=== PATIENT | female | born 1960 | race Caucasian/White ===

== ENCOUNTER 2017-10-30 21:13 | Inpatient (IN) | payer OTHER ==
[~2017-10-30] VITALS: Ht 154.9 cm; Wt 45.0 kg
--- NOTE | ~2017-10-30 | CON ---
[place], [place] REPORT OF CONSULTATION NAME: CASTILLO PEREZ UNIT #: [id number] ROOM: 406 DOCTOR: GENEVIEVE PECK MD,ROLAND BIRTHDATE: [birth year] DOS: 10/31/2017 PULMONARY CONSULTATION EVALUATION AND MANAGEMENT CONSULTATION REQUESTING PHYSICIAN: Dr. Bean. REASON FOR CONSULTATION: Assess the patient's current acute exacerbation of chronic obstructive pulmonary disease. HISTORY OF PRESENT ILLNESS: A 57-year-old white female who has been known to me with history of advanced COPD with centrilobular emphysema, chronic hypoxic respiratory failure, noncompliant treatment, chronic nicotine abuse, presented to the hospital on 10/30/2017. The patient has been noted progressive increase of symptoms of shortness of breath for the past couple of weeks. The symptoms are also associated with cough, which are noted excessive chest congestion, inability to expectorate sputum, most of the time, sometimes she has been noted with green sputum expectoration. She denies symptoms of chest pain. Denies symptoms of hemoptysis. She does complain of wheezing. REVIEW OF SYSTEMS: CONSTITUTIONAL: Fatigue and tiredness noted without symptoms of fever or chills. EYES: Denies burning, redness, tenderness. EARS, NOSE, THROAT: No sore throat, hoarseness, otalgia, postnasal drainage or epistaxis. CARDIOVASCULAR: Denies anginal pain, edema, pain, lower extremities. GASTROINTESTINAL: Dysphagia, nausea, vomiting, diarrhea, abdominal pain, hematemesis, melena, or hematochezia. SKIN: Denies lesions or rashes. CENTRAL NERVOUS SYSTEM: No dizziness, headache, diplopia, syncopal episodes. Remaining systems were reviewed. They were noted all negative. PAST MEDICAL HISTORY: 1. Review the medical record. The patient has been hospitalized from the date of 01/04/2017 and discharged home on 01/22/2017. The patient required intubation and mechanical ventilation at that time for the management of severe progressive acute hypercapnic and hypoxic respiratory failure. 2. History of advanced centrilobular emphysema/COPD. 3. History of chronic hypercapnic respiratory failure. 4. Chronic hypoxic respiratory failure, uncomplicated. 5. Severe persistent bronchial asthma. 6. History of chronic narcotic pain medication dependence. 7. Anxiety disorder. Noncompliant with the chronic nicotine dependence. PAST SURGICAL HISTORY: 1. Appendectomy. 2. Laparoscopic cholecystectomy. 3. Endotracheal intubation and mechanical ventilation. 4. Bronchoscopy. [place], [place] REPORT OF CONSULTATION NAME: CASTILLO PEREZ UNIT #: [id number] ROOM: [facility] DOCTOR: ROLAND BRIONES MD BIRTHDATE: [birth year] SOCIAL HISTORY: The patient is , has 4 children. Smoking noted from age of [age] years old, 1.5 pack of cigarettes per day, currently smoking as 1 pack of cigarettes per day. Denies history of alcohol use or any illicit drug use. There was no history, occupational related pulmonary exposure. FAMILY HISTORY: Father at age 42-year-old, complication of aneurysm of the brain. Mother at the age of 5656 years old, complication related to COPD. MEDICATIONS: Current administered medication noted use of IV Solu-Medrol 40 mg q.8h., sertraline, DuoNeb q.4h. fentanyl patches, Klonopin, Rocephin, and Xanax. DRUG ALLERGIES: Noted as no known drug allergies. PHYSICAL EXAMINATION: GENERAL: This 57-year-old female currently noted without any acute distress, sitting on a bed. Height of 5 feet 1 inch, weight of 99 pounds, BMI 18.7. VITAL SIGNS: Normal temperature, respiratory rate 18-22, heart rate of 80-67, blood pressure 142/70-154/84. The pulse oxygen saturation on 3 liters was 84% with 3 liters of cannula to 95% saturation. HEENT: Examination shows head was atraumatic. Eyes nonicterus. NECK: Supple. CARDIOVASCULAR: S1, S2 audible. LUNGS: Diffuse reduced breath sounds bilaterally with expiratory wheezing without any crackles. ABDOMEN: Flat, soft, nontender. EXTREMITIES: Without any edema, clubbing, cyanosis. CENTRAL NERVOUS SYSTEM: Cranial nerves 2-12 intact. No focal deficit. MUSCULOSKELETAL: No deformities visible. SKIN: No lesions or rashes. LABORATORY DATA: Lactic acid on admission 2.2, this morning 0.8. CBC of 10/30/2017. WBC count was normal. Hemoglobin, hematocrit normal, platelet count was normal. The PT/INR noted as normal yesterday on admission as well. CMP on admission yesterday, carbon dioxide 35, chloride of 96. Otherwise, the BMP was normal. The chest x-ray, 2-view, which was done on 10/30/2017 shows severe changes of COPD, hyperinflation without any acute pulmonary infiltration. IMPRESSION: 1. The patient has been currently admitted to the hospital, history of chronic hypoxic respiratory failure, hypercapnic and presented to the hospital noted with acute severe exacerbation of chronic obstructive pulmonary disease, acute tracheobronchitis with progressive respiratory symptom past couple of days. There was no evidence of acute pneumonia as well. 2. Noncompliance chronic nicotine dependence and acute general anxiety disorder, this as noted earlier. PLAN OF TREATMENT: Continue current dose of corticosteroids and bronchodilators. Continue current antibiotic for this patient's management as well with IV Rocephin. She was started on Dulera 200/5 due inhalation b.i.d., [place], [place] REPORT OF CONSULTATION NAME: CASTILLO PEREZ UNIT #: [id number] ROOM: [facility] DOCTOR: GENEVIEVE PECK MD,ROLAND BIRTHDATE: [birth year] Also, start mucoid replacement patch to overcome nicotine withdrawal. Collect the sputum for Gram stain and culture. Monitor respiratory symptoms closely. Further addition treatment changes will be ordered based on progression of the illness. Thanks for allowing me to participate in the care of this patient. ROLAND VALLEJO MD CM:CONSTR:REPORT OF CONSULTATION 1107 10/31/17 1538 interface
--- NOTE | ~2017-10-30 | PR ---
[place], [place] PROGRESS NOTE NAME: CASTILLO PEREZ UNIT #: [id number] ROOM: 406 DOCTOR: GENEVIEVE PECK MD,ROLAND BIRTHDATE: [birth year] DOS: 11/01/2017 SUBJECTIVE: She was still noted with coughing. The patient with partial sputum expectoration, wheezing, and shortness of breath still persists. Denies symptoms of chest pain or hemoptysis. She has been started on nicotine replacement patches. OBJECTIVE: VITAL SIGNS: For the patient which are recorded this morning. The patient was examined and normal temperature, respiratory rate 18, heart rate of 97, blood pressure 111/80. Pulse ox saturation was recorded at 100% on 3 liters cannula. HEENT: Examination shows no acute change. NECK: Supple. CARDIOVASCULAR: S1, S2 audible. LUNGS: Diffuse expiratory wheezing were noted in the lungs bilaterally. ABDOMEN: Soft, nontender. EXTREMITIES: Without any acute edema. IMPRESSION: 1. Acute exacerbation of chronic obstructive pulmonary disease for the patient. 2. History of chronic hypoxic and hypercapnic respiratory failure. 3. Acute tracheobronchitis. 4. Nicotine dependence. PLAN OF TREATMENT: Continuation of the current plan of management with corticosteroids, bronchodilators, and other treatment with gradual reduction in the medication of the patient based on improvement in the respiratory symptom. Usual care. Supportive care and other treatments. ROLAND VALLEJO MD CM:PNTRANS [id number] ROLAND PECK MD 11/06/17 0704 interface
--- NOTE | ~2017-10-30 | DS ---
[place], [place] DISCHARGE SUMMARY NAME: CASTILLO PEREZ UNIT #: [id number] ROOM: 406 DOCTOR: KELIN HOGAN MD BIRTHDATE: [birth year] DOS: 11/02/2017 DISCHARGE DIAGNOSES: 1. Acute exacerbation of severe underlying chronic obstructive pulmonary disease and acute over chronic respiratory failure, improved with treatment. 2. Continued nicotine smoke dependence. 3. Chronic hypoxemic and hypercapnic respiratory failure. 4. Nicotine smoke dependence. 5. Severe generalized anxiety disorder. 6. Severe protein calorie malnutrition. 7. Benign essential hypertension. 8. Chronic opioid dependence. 9. History of hepatitis C by infection. 10. Laparoscopic cholecystectomy and appendectomy. HOSPITAL COURSE: The patient was admitted by Dr. Espinosa with increased shortness of breath and had already failed outpatient treatment with 2 different antibiotics for her cough. The patient was admitted and started on corticosteroids, oxygen, bronchodilators and her breathing has improved to a point that she would like to go home today. The patient's pulse ox is 98% with oxygen 3 liters per minute as checked today. End-stage COPD with poor long-term prognosis. The patient was referred to lung transplant, but she cannot stop smoking and still has been smoking cigarettes off and on, so she is not a candidate for lung transplant so far. Generalized anxiety disorder, followed and treated. Severe protein calorie malnutrition. The patient worked with dietary. Benign essential hypertension, with controlled blood pressures with treatment. Chronic back pains and opioid medication dependence. The patient remains on fentanyl patch. LABORATORY DATA: Sputum cultures were normal. Blood cultures were negative. Chest x-ray without any acute abnormality. Normal CBC. DISCHARGE MANAGEMENT: Nicotine patch 21 mg daily, Zoloft 200 mg daily, Symbicort twice a day, Medrol Dosepak, DuoNeb every 4 hours, fentanyl patch 100 mcg every 3 days, clonazepam 0.5 mg b.i.d. p.r.n. for anxiety, Xanax p.r.n. FOLLOWUP: At the office on Saturday. [place], [place] DISCHARGE SUMMARY NAME: CASTILLO PEREZ UNIT #: [id number] ROOM: 406 DOCTOR: KELIN HOGAN MD BIRTHDATE: [birth year] KELIN HOGAN MD CM:REAGAN [id number] KELIN HOGAN MD 11/02/17 2030 interface
--- NOTE | ~2017-10-30 | PR ---
[place], [place] PROGRESS NOTE NAME: CASTILLO PEREZ UNIT #: [id number] ROOM: 406 DOCTOR: KELIN HOGAN MD BIRTHDATE: [birth year] DOS: 11/01/2017 SUBJECTIVE: The patient continues to be short of breath. PHYSICAL EXAMINATION: VITAL SIGNS: Blood pressure 121/57, heart rate 70 beats per minute, breathing 18 times per minute, temperature 98 degrees Fahrenheit. GENERAL APPEARANCE: The patient is alert and oriented x 3, in no visible distress. HEENT AND NECK: Exam within normal limits. CARDIOVASCULAR SYSTEM: Heart rate is regular in rate and rhythm. S1 and S2 normally audible. LUNGS: Decreased breath sounds all over and the patient is wearing oxygen.. ABDOMEN: Soft, nontender. No obvious organomegaly. Bowel sounds are present. EXTREMITIES: Without significant cyanosis or edema. IMPRESSION: Acute exacerbation of severe underlying chronic obstructive pulmonary disease with acute over chronic respiratory failure, being treated with bronchodilators, oxygen, corticosteroids and antibiotics. Dr. Mcadams, the chemical plant manager is also following her. Chronic hypoxemic and hypercapnic respiratory failure. Continued Nicotine smoke dependence. The patient does not qualify for lung transplant. Otherwise, she is a good candidate and has been before for lung transplant. Severe generalized anxiety disorder, at least partly related to her chronic respiratory failure, being managed. The patient takes Xanax on as need basis. Chronic back pains. The patient remains on fentanyl patch. KELIN HOGAN MD CM:PNTRANS [id number] KELIN HOGAN MD 11/01/17 1355 interface
--- NOTE | ~2017-10-30 | WRIGHTHP ---
[place], [place] PATIENT HISTORY AND PHYSICAL EXAM NAME: CASTILLO PEREZ [facility] #: [id number] UNIT #: [id number] ROOM: 406 DOCTOR: LINDA MISHRA MD BIRTHDATE: [birth year] DOS: 10/30/2017 HISTORY OF PRESENT ILLNESS: The patient is 57 years old. The patient is very well known to us, comes in with complaints of difficulty breathing. The patient states that she had seen Dr. Bean and had 2 different antibiotics prescribed for her cough. Her cough would get slightly better while she was on the antibiotic, the moment she stop the medicine, her symptoms would come back and had cough and mucus production would become green again. She denies having any chest pains or palpitations, does not have any fever or chills, does not have any abdominal pain, nausea, any emesis. The patient was last admitted to the hospital in 01/2017, but unfortunately continues to smoke 1 pack of cigarettes daily. PAST MEDICAL HISTORY: Significant for: 1. COPD with chronic respiratory failure. 2. Continued moderate nicotine abuse. 3. Generalized anxiety disorder. 4. Protein-calorie malnutrition, severe. 5. Benign hypertension. 6. Chronic opioid abuse. 7. Benign hepatitis C by history. 8. History of laparoscopic cholecystectomy, appendectomy. MEDICATIONS: Ventolin 2 puffs daily p.r.n., Symbicort 160 two puffs twice daily, Xanax 0.25 q. 6, clonazepam 0.5 b.i.d., iron daily, sertraline 200 daily, fentanyl 100 mcg q. 72. SOCIAL HISTORY: Smoker of about 1 pack of cigarettes a day. Denies using any alcohol now. PHYSICAL EXAMINATION: GENERAL: She is awake and alert and oriented. VITAL SIGNS: Graphic trend shows a pressure of 135/62, pulse of 70, respirations 20, temperature 98.5. LUNGS: Diminished breath sounds. Scattered wheezes and rhonchi heard bilaterally. HEART: Regular. ABDOMEN: Soft. EXTREMITIES: Without any edema. LABORATORY DATA: Chest x-ray as done in the Emergency Room shows no acute process. Lactic acid was 2.2. White blood cell count is 7.2. Comprehensive glucose 132, BUN 16, sodium 139, potassium 3.9, chloride 96, bicarbonate 35, creatinine 0.95. ASSESSMENT AND PLAN: 1. Acute exacerbation of chronic obstructive pulmonary disease, failed outpatient regimen admitted for IV steroids. 2. Acute tracheobronchitis. IV antibiotics have been added. Sputum cultures to be sent. The patient has received 2 different antibiotics as an outpatient [place], [place] PATIENT HISTORY AND PHYSICAL EXAM NAME: CASTILLO PEREZ UNIT #: [id number] ROOM: [facility] DOCTOR: LINDA MISHRA MD BIRTHDATE: [birth year] without any improvement, may require a bronchoscopy, Dr. Mcadams has been consulted. 3. Anxiety disorder. Home medications to be continued. LINDA MISHRA MD CM:HISPHYS:PATIENT HISTORY AND PHYSICAL EXAMINATION 1 7 LINDA MISHRA MD 10/31/17907 interface
[~2017-10-30 21:13] MED LIST: ACETAZOLAMIDE250 MG PO; ADVAIR 250/501 EA INH; ALBUTEROL SULF0.5 M1 NEB; ALPRAZOLAM0.25 M2 PO; AMLODIPINE BESYL5 MG PO; ATOXIMETIN-B1 CAP PO; AUGMENTIN 875-875 MG PO; BACTRIM DS 8001 TA1 PO; CALCIUM + D3 E1 EACH PO; CALCIUM CARB500 MG PO; CEFTIN250 MG PO; CEFUROXIME AXE250 MG PO; CHANTIX0.5 MG PO; CLINDAMYCIN150 MG PO; CLONAZEPAM0.5 M2 PO; CYCLOBENZAPRINE10 MG PO; DALI500T PO; DOXYCYCLINE100 M3 PO; DULCOLAX10 MG R; DURAGESIC; DURAGESIC 100100 MCG TD; DURAGESIC100 MCG/HR TD; DURAGESIC25 MCG/HR TD; DURICEF500 MG PO; FLONASE 0.05% 121 EA NAS; HCTZ-METOPROLOL1 TAB PO; HYDR25T PO; HYDROCHLOROTHIA25 MG PO; HYDROCODONE BIT1 T11 PO; KEFLEX500 MG PO; LEVAQUIN250 MG PO; LEVAQUIN750 MG PO; LIDEX 0.05% CRE15 GM T; LISINOPRIL-HYDR1 TA1 PO; MAALOX UD SUSP.30 ML PO; MEDROL DOSEPAK4 MG PO; METHADONE HCL40 M2 PO; MIRALAX POWDER17 G1 PO; MIRALAX17 GM/DOSE PO; MOTRIN800 MG PO; MUCINEX DM 30/61 TAB PO; MUCINEX600 MG PO; MULTI VITAMINS1 TAB PO; MULTIVITAMIN FO1 CAP PO; Motrin,Rufen800 MG PO; NAPROSYN500 MG PO; NICOTINE PATCH1 EAC1 TD; NIX CREME RINSE60 M1 PO; NORCO 325 MG-51 TAB PO; NORFLEX100 MG PO; NORVASC5 MG PO; PEGASYS180 MCG/ML; PERCOCET 325 MG1 TA7 PO; PHOSLO667 MG PO; PREDNISONE1 MG PO; PREDNISONE10 MG; PREDNISONE10 MG PO; PREDNISONE20 M1 PO; PREDNISONE20 MG PO; PREPLUS CA-FE1 EACH PO; PROAIR HFA0.09 MG/AC INH; PROTONIX40 MG PO; REGLAN10 MG PO; RIBAVIRIN400 MG PO; RIBAVIRIN600 MG PO; RISPERDAL0.5 MG PO; SERTRALINE HYDR50 MG PO; SPIRIVA 5 CAPS18 MCG INH; SPIRIVA18 MCG INH; SYMBICORT1 AE1 INH; TORADOL10 MG PO; TRIMOX500 MG PO; TYLENOL325 M1 PO; ULTRAM50 MG; VENTOLIN 02.5 MG/3 M PO; VENTOLIN H0.09 MG/AC INH; VENTOLIN0.09 MG/AC INH; VIBRA-TAB100 M1 PO; VIBRAMYCIN100 MG PO; VITAMIN B; VITAMIN D33000 UNIT PO; WELLBUTRIN XL300 MG PO; ZOFRAN ODT4 MG SL; ZOLOFT100 MG PO; ZOLOFT20 MG/ML PO; [UNRECOGNIZED DRUG - OTHER] TD
[2017-10-30 21:18] VITALS: BP 124/92
[2017-10-30 22:09] LABS: BASO % 0.1 % (0.0-1.0); EOS % 0.6 % (1.0-4.0); HEMOGLOBIN 12.7 g/dl (12.0-16.0); LYMPH # 0.5 10*3/uL (1.3-4.4); LYMPH % 6.8 % (27.0-41.0); MEAN CELL VOLUME 99.2 fl (81.0-99.0); MEAN CORPUSCULAR HGB 32.3 pg (27.0-31.0); MEAN CORPUSCULAR HGB CONC 32.6 g/dl (33.0-37.0); MEAN PLATELET VOLUME 9.6 fl (9.6-12.3); MONO # 0.4 10*3/uL (0.1-1.0); MONO % 6.1 % (3.0-9.0); NEUT # 6.2 10*3/uL (2.3-7.9); PLATELET COUNT AUTOMATED 178 10*3/uL (130-400); RED BLOOD COUNT 3.93 10*6/uL (4.10-5.10); RED CELL DISTRI WIDTH 13.1 % (0-14.5); WHITE BLOOD COUNT 7.2 10*3/uL (4.8-10.8)
--- NOTE | 2017-10-30 22:13 | NUR ---
LACTIC ACID 2.2 C GARRETT GUERRERO NOTIFIED.
[2017-10-30 22:27] LABS: ALBUMIN 3.4 gm/dl (3.1-4.5); ALKALINE PHOSPHATASE 123 U/L (45-117); BUN 16 mg/dl (7-24); CHLORIDE 96 mmol/L (98-107); CREATININE 0.95 mg/dL (0.55-1.02); LIPASE 77 U/L (73-393); POTASSIUM 3.9 mmol/L (3.5-5.1); SGOT/AST 43 IU/L (3-35); SGPT/ALT 42 U/L (12-78); SODIUM 139 mmol/L (136-145)
[2017-10-30 22:32] LABS: TROPONIN I < 0.015 ng/ml (<0.045)
[2017-10-30 22:37] VITALS: BP 128/84
--- NOTE | 2017-10-30 22:49 | NUR ---
PT PROMPTED FOR URINE AGAIN.PT HAS BEDSIDE TOILET.
[2017-10-30 23:12] VITALS: BP 122/77
--- NOTE | 2017-10-30 23:50 | NUR ---
Time: 2349 A 57 year old FEMALE admitted to under services of LINDA MEDINA MD. Pt. arrived via bed from ER. Chief complaint: SHORTNESS OF BREATH, PRODUCTIVE COUGH. VENICE RUSSO
[2017-10-31] VITALS (7 sets, daily range): BP systolic 125–154; BP diastolic 58–84
[2017-10-31 00:02] LABS: BILIRUBIN NEGATIVE (NEGATIVE); BLOOD NEGATIVE (NEGATIVE); CLARITY CLEAR (CLEAR); COLOR YELLOW (YELLOW); GLUCOSE NEGATIVE (NEGATIVE); KETONE NEGATIVE (NEGATIVE); LEUKO ESTERASE NEGATIVE (NEGATIVE); NITRITE NEGATIVE (NEGATIVE); UROBILINOGEN 0.2 E.U./dl (0.2-1.0)
[2017-10-31 00:19] LABS: EPITHELIAL CELLS 15-20
[2017-10-31 00:20] LABS: WBC 0-2 wbc/hpf (0-5)
--- NOTE | 2017-10-31 01:30 | NUR ---
DR MISHRA WAS CALLED, ANSWERING MACHINE PICKED UP, STATED TO CALL AGAIN WITH BEEPS. WAS UNABLE TO LEAVE MESSAGE.
--- NOTE | 2017-10-31 02:39 | NUR ---
PATIENT HAS BEEN RESTING ALL NIGHT WITH EYES CLOSED. RESPIRATORY NOTIFIED EARLIER FOR LONGER OXYGEN TUBING TO REACH THE BATHROOM. VOICED O COMPLAINTS.
--- NOTE | 2017-10-31 02:58 | NUR ---
24 HR chart check completed.
--- NOTE | 2017-10-31 03:38 | NUR ---
DR MISHRA NOTIFIED OF ADMISSION, NEW ORDER RECEIVED FOR REGULAR DIET, DUONEB Q4 HOURS, SOLUMEDROL 4OMG 3XDAY AND ROCEPHIN 1GM QD.
--- NOTE | 2017-10-31 04:39 | NUR ---
PATIENT LYING IN BED ON HER LEFT SIDE. PATIENT WITH EYES CLOSED, APPEARS TO BE SLEEPING. NO S/S OF DISTRESS, NOTED.
--- NOTE | 2017-10-31 08:00 | NUR ---
Slurry Control Tender in to talk to patient. Patient states lives at HOME with HER DAUGHTER. There are 16 steps in the home. Physician: DR HOGAN Pharmacy: [facility] Home health services: NONE Patient's level of ADLs: INDEPENDENT Patient has working utilities: YES DME: NEB/OCC [facility]E/O2 FROM [facility] Follow-up physician's appointment after d/c: PREFERS TO MAKE HER OWN APPT Does patient want to access PORTAL?: Discharge plan HOME. CHEVY MARQUEZ
--- NOTE | 2017-10-31 09:04 | NUR ---
RESTING QUIETLY IN BED, NO C/O NO DISTRESS NOTED. HOB ELEVATED WITH O2 ON. DR MISHRA VISITED AND DISCUSSED PLAN OF CARE. SEE SHIFT ASSESSMENT.
--- NOTE | 2017-10-31 10:45 | NUR ---
SPUTUM CUP GIVEN TO PT WITH INSTRUCTIONS FOR USE
[2017-10-31] MEDS ORDERED: XANAX0.25 MG PO (16:26)
[2017-10-31] MEDS ORDERED: COMBIVENT RESPIM4 GM INH (16:26)
[2017-10-31] MEDS ORDERED: DALIRESP500 MC1 PO (16:28)
[2017-10-31] MEDS ORDERED: VITAMIN D32000 UNIT PO (16:29)
[2017-10-31] MEDS ORDERED: DUONEB 3 MG/3 ML3 M1 INH (16:30)
[2017-10-31] MEDS ORDERED: Duragesic 75 M75 MCG TD (16:31)
--- NOTE | 2017-10-31 23:00 | NUR ---
TOOK OVER CARE OF PT AT THIS TIME. PT RESTING IN BED, RESPIRATIONS EASY AND UNLABORED. SUPPLEMENTAL OXYGEN IN PLACE PER NC. NO S/S OF PAIN OR DISTRESS. ENCOURAGED PT TO EXPECTORATE INTO SPUTUM CUP IN ORDER TO SEND SPECIMEN TO LAB.
[2017-11-01] VITALS: BP 111/80
--- NOTE | 2017-11-01 00:56 | NUR ---
SPUTUM SPECIMEN SENT TO LAB AT THIS TIME PER PHYSICIAN ORDER.
--- NOTE | 2017-11-01 04:00 | NUR ---
PT NOT AWAKENED PER POLICY, PT RESTING IN BED, NO S/S OF PAIN OR DISTRESS. ALL NEEDS MET, ALL SAFETY MEASURES IN PLACE.
--- NOTE | 2017-11-01 06:51 | NUR ---
AM MEDICATIONS TAKEN WITH EASE. PT DENIES ANY DISCOMFORT AT THIS TIME. SUPPLEMENTAL OXYGEN IN PLACE, RESPIRATIONS EASY AND UNLABORED. NO S/S OF PAIN OR DISTRESS. ENCOURAGED USE OF CALL LIGHT FOR NEEDS/CONCERNS.
[2017-11-01 08:00] VITALS: BP 121/57
[2017-11-01 12:00] VITALS: BP 123/76
[2017-11-01 16:00] VITALS: BP 108/64
[2017-11-01 20:00] VITALS: BP 148/94
[2017-11-02] VITALS: BP 146/96
[2017-11-02 08:00] VITALS: BP 164/88
[2017-11-02 09:05] VITALS: BP 150/76
--- NOTE | 2017-11-02 11:11 | NUR ---
PT RECEIVED NORCO FOR PAIN RATED 6/10 IN HER BACK.
[2017-11-02 12:00] VITALS: BP 139/80
[2017-11-02] MEDS ORDERED: MEDROL DOSEPAK4 MG PO (16:14)
[2017-11-02] MEDS ORDERED: MUCINEX1200 M1 PO (16:30)
--- NOTE | 2017-11-02 16:50 | NUR ---
DISCHARGED TO HOME IN CARE OF FAMILY. INSTRUCTIONS AND PERSCRIPTIONS REVIEWED WITH PT. REFUSED FLU VACCINE AT THIS TIME.
== END 2017-11-02 16:50 | disposition home or self-care (01) | DRG 871 ==
LOC: ED 21:13 → EDHOLD 23:16 → 4E 23:16
PROVIDERS: Physician Assistant; ADMIT Internal Medicine
DX: A41.9 Sepsis, unspecified organism (principal); J96.21 Acute and chronic respiratory failure with hypoxia; E43 Unspecified severe protein-calorie malnutrition; J96.22 Acute and chronic respiratory failure with hypercapnia; J44.1 Chronic obstructive pulmonary disease with (acute) exacerbation; F11.20 Opioid dependence, uncomplicated; J44.0 Chronic obstructive pulmonary disease with (acute) lower respiratory infection; Z68.1 Body mass index [BMI] 19.9 or less, adult; J20.9 Acute bronchitis, unspecified; F41.1 Generalized anxiety disorder; I10 Essential (primary) hypertension; R65.20 Severe sepsis without septic shock; F17.210 Nicotine dependence, cigarettes, uncomplicated; B19.20 Unspecified viral hepatitis C without hepatic coma; G89.29 Other chronic pain; M54.9 Dorsalgia, unspecified; Z91.19 Patient's noncompliance with other medical treatment and regimen; Z90.49 Acquired absence of other specified parts of digestive tract; Z82.49 Family history of ischemic heart disease and other diseases of the circulatory system; Z83.6 Family history of other diseases of the respiratory system; Z80.9 Family history of malignant neoplasm, unspecified

== ENCOUNTER → 2017-11-14 | Outpatient (CLI) | payer OTHER ==
[~2017-11-14] MED LIST changes: +COMBIVENT RESPIM4 GM INH; +DALIRESP500 MC1 PO; +DUONEB 3 MG/3 ML3 M1 INH; +Duragesic 75 M75 MCG TD; +MUCINEX1200 M1 PO; +VITAMIN D32000 UNIT PO; +XANAX0.25 MG PO
== END | disposition home or self-care (01) ==
LOC: LAB 16:20
DX: Z00.00 Encounter for general adult medical examination without abnormal findings (principal)

== ENCOUNTER 2017-11-18 16:39 | Inpatient (IN) | payer OTHER ==
[~2017-11-18] VITALS: Ht 154.9 cm; Wt 46.0 kg
--- NOTE | ~2017-11-18 | PR ---
[place], [place] PROGRESS NOTE NAME: CASTILLO PEREZ UNIT #: [id number] ROOM: 407 DOCTOR: GENEVIEVE PECK MD,ROLAND BIRTHDATE: [birth year] DOS: 11/21/2017 ADDENDUM The patient was independently seen and examined today with [id number] encounter. Physical examination performed. The labs were reviewed. The history was taken. The note done by the medical center director was approved. The patient was continued on corticosteroids, bronchodilators. The bronchoscopy done a couple of days ago. The culture reviewed and noted as normal judith. Chest auscultation was still noted with expiratory wheezing, which was mild at this time and not completely resolved. Blood cultures were noted as no bacterial growth, preliminary. The acid fast bacilli were noted negative, pending culture results. The patient could be discharged home. The patient tapering dose of prednisone, antibiotics, resume all previous medications COPD. Cultures especially of acid fast to be monitored to exclude Mycobacterium avium complex, other infection resulting in persistent cough and recurrence of COPD exacerbation. ROLAND VALLEJO MD CM:PNTRANS [phone] ROLAND PECK MD 11/21/17 1600 interface
--- NOTE | ~2017-11-18 | PR ---
[place], [place] PROGRESS NOTE NAME: CASTILLO PEREZ UNIT #: [id number] ROOM: 407 DOCTOR: IOANA GRAYSON DO BIRTHDATE: [birth year] DOS: 11/21/2017 SUBJECTIVE: The patient was seen and examined at bedside. The patient reports that her cough, shortness of breath and wheezing have all improved since the time of admission. The patient reports that she feels like she is medically stable for discharge. The patient had some questions regarding the bronchoscopy and the cultures and labs that were sent and the patient was assured that the antibiotics that she is on will help manage her current COPD exacerbation. The patient was encouraged to follow up with Dr. Vallejo in his office in 2-3 weeks and the patient understood the plan and agreed. OBJECTIVE: VITAL SIGNS: Temperature 98.3, pulse is 76, respirations 18, blood pressure 138/74 and pulse ox was 98% on 2 liters nasal cannula, which is the patient's baseline. HEENT: Eyes are clear with no injection, no drainage. Mucous membranes are moist. Nares are patent. RESPIRATORY: Mild expiratory wheezing with diminished breath sounds are noted bilaterally. No rales were appreciated. CARDIOVASCULAR: No murmurs, gallops or rubs. S1 and S2 are noted. Regular rate and rhythm. EXTREMITIES: No peripheral edema, no cyanosis, no clubbing, no erythema, no edema. NEUROLOGIC: No focal deficits. SKIN: No rashes, no erythema. MUSCULOSKELETAL: No deformities noted. ASSESSMENT: 1. Chronic obstructive pulmonary disease exacerbation with mucus plugging status post bronchoscopy on the . 2. Chronic tobacco abuse. 3. Chronic hypercapnia and hypoxia, respiratory failure with oxygen dependence on 2 liters nasal cannula continuous. 4. Generalized anxiety disorder. PLAN: At this time is to have the patient discharged on antibiotics and steroids for continued therapy outpatient and to follow up with Dr. Vallejo in his office in 2-3 weeks for continued care. IOANA GRAYSON DO [place], [place] PROGRESS NOTE NAME: ANACASTILLO Alford UNIT #: [id number] ROOM: 407 DOCTOR: IOANA GRAYSON DO BIRTHDATE: [birth year] ROLAND VALLEJO MD CM:KODI [id number] IOANA GRAYSON DO 11/21/17 1134 interface
--- NOTE | ~2017-11-18 | PR ---
[place], [place] PROGRESS NOTE NAME: CASTILLO PEREZ UNIT #: [id number] ROOM: 407 DOCTOR: LINDA MISHRA MD BIRTHDATE: [birth year] DOS: SUBJECTIVE: The patient is resting comfortably, does not have any new complaints. OBJECTIVE: VITAL SIGNS: Graphic trend shows blood pressure 138/74, pulse of 76, respirations 18, temperature 98.3. LUNGS: Diminished breath sounds, clear. HEART: Regular. ABDOMEN: Soft, scaphoid. A large ventral hernia noticed on the left side of the abdomen. EXTREMITIES: Without any edema. ASSESSMENT AND PLAN: 1. Acute exacerbation of chronic obstructive pulmonary disease, stable without any further problems: 2. Acute tracheobronchitis, status post bronchoscopy. Bronch cultures so far are negative. 3. Chronic pain, controlled. Plan is to discharge her to home if okay with Dr. Mcadams. LINDA MISHRA MD CM:PNTRANS 0853 LINDA MISHRA MD 11/21/17 0858 interface
--- NOTE | ~2017-11-18 | PROC NOTE ---
[place], [place] PROCEDURE NOTE NAME: CASTILLO PEREZ UNIT #: [id number] ROOM: 407 DOCTOR: GENEVIEVE PECK MD,ROLAND BIRTHDATE: [birth year] DOS: 11/19/2017 BRONCHOSCOPY REPORT PREOPERATIVE DIAGNOSES: Severe nonproductive cough and wheezing with exacerbation of COPD, nonresolution of the respiratory symptom with past hospitalization and outpatient treatment. POSTOPERATIVE DIAGNOSES: Successful removal of the large plugs of the mucus impaction airway with infected bronchoscopy with finding of tracheobronchitis. PROCEDURE DESCRIPTION: Informed consent obtained for the patient. She was brought to the OR and placed in supine position. Conscious sedation administered by the Anesthesia Department. After achieving a proper sedation, airway introduced into the mouth. Bronchoscope advanced into laryngeal area. Epiglottis and vocal cords were seen. Vocal cord was noted yellowish in color moving symmetrically with the movements. The bronchoscope advanced to the vocal cord into the tracheal lumen, which shows moderate to large amount of thick mucoid secretion with small purulent secretions. Secretions suctioned out with the help of normal saline wash and sent for cultures. Right upper, right middle, right lower, left upper, lingular lobe bronchi were all examined. The patient noted moderate thick mucoid impaction in the airways, removed with the help of normal saline wash without any difficulty. No endobronchial obstructive lesions were noted. The procedure was tolerated without any complication. Postoperative findings will be discussed with the patient once the patient recovers the effects of acute sedation. ROLAND VALLEJO MD CM:PROCNOTE:PROCEDURE NOTE 1252 [id number] ROLAND PECK MD
--- NOTE | ~2017-11-18 | EKG ---
[place], [place] ELECTROCARDIOGRAM REPORT NAME: CASTILLO PEREZ UNIT #: [id number] ROOM: 407 DOCTOR: GENEVIEVE PECK MD,ROLAND BIRTHDATE: [birth year] DOS: 11/18/2017 TIME: 5:03 p.m. Normal sinus rhythm noted. Heart rate 94 beats per minute. Left anterior fascicular hemiblock was also noted. ROLAND VALLEJO MD CM:EKGRPT:ELECTROCARDIOGRAM REPORT 1818 1852 ROLAND PECK MD
--- NOTE | ~2017-11-18 | CON ---
[place], [place] REPORT OF CONSULTATION NAME[id number] #: [id number] ROOM: 407 DOCTOR: GENEVIEVE PECK MDROLAND BIRTHDATE: [birth year] DOS: 11/19/2017 PULMONARY CONSULTATION, EVALUATION, AND MANAGEMENT REASON FOR CONSULTATION: To assess the patient for ongoing acute exacerbation of COPD with recurrent hospitalization for the nonresolution of symptoms that she noted at home with outpatient treatment given to the patient post-discharge. HISTORY OF PRESENT ILLNESS: This is a 57-year-old white female who has been admitted to the hospital in the last week of October 2017. The patient was discharged to home on 11/02/2017 after medical management of acute exacerbation of chronic obstructive pulmonary disease, acute bronchitis. She has been noted with history of chronic advanced centrilobular emphysema as well as chronic hypercapnic and hypoxic respiratory failure. She was seen in my office yesterday for followup post-discharge reporting progressively worsening respiratory symptoms. The cough was described as severe, nonproductive, multiple times a day including at night with insomnia. The patient does have symptoms of shortness of breath, which has been noted progressively worsening, occurs with mild to moderate exertion with continuous wheezing, which were noted to be audible in the office as well. She has been assessed in the office. The patient was sent to the hospital for further medical management and inpatient treatment. She presented to the Emergency Room and was hospitalized for further medical management on 11/18/2017. REVIEW OF SYSTEMS: CONSTITUTIONAL SYMPTOMS: She was noted with symptoms of fatigue, but there were no symptoms of fever, chills or abnormal weight loss, or changes in appetite. EYES, EARS, NOSE, THROAT SYMPTOMS: Denies sore throat, hoarseness, otalgia, or postnasal drainage. CARDIOVASCULAR: Denies anginal pain, edema, or pain of the lower extremities. GASTROINTESTINAL: No dysphagia, nausea, vomiting, diarrhea, abdominal pain, hematemesis, melena, or hematochezia. SKIN: Denies any lesions or rashes. MUSCULOSKELETAL: Denies any acute joint pain. History of chronic pain medication dependency that has been treated with long-term narcotic medications, remain controlled. CENTRAL NERVOUS SYSTEM: No dizziness, headache, diplopia, or syncopal episodes. The remaining systems were reviewed, they were noted all negative. PAST MEDICAL HISTORY: 1. The patient with centrilobular emphysema/COPD, which was advanced. 2. Hypercapnic respiratory failure and acute chronic hypoxic respiratory failure, use of oxygen between 2-4 liter nasal cannula. 3. Uncomplicated severe persistent bronchial asthma. 4. History of nicotine dependence. 5. Anxiety disorder and acute chronic narcotic pain medication dependency with intervertebral disk disease. PAST SURGICAL HISTORY: [place], [place] REPORT OF CONSULTATION NAME: CASTILLO PEREZ UNIT #: [id number] ROOM: [facility] DOCTOR: VIVIAN BRIONES MDM BIRTHDATE: [birth year] 1. Appendectomy. 2. Laparoscopic cholecystectomy. 3. Intubation and mechanical ventilation. 4. Therapeutic bronchoscopies in the past. SOCIAL HISTORY: The patient is , has 4 children. Smoking noted from age of 16 years of one and half packs of cigarettes, currently smoking less than half a pack of cigarettes per day. There was history of alcohol use or illicit drug use. No history of occupation related pulmonary exposure. FAMILY HISTORY: Father at 42 years due to complication from aneurysm of the brain. Mother at 50 due to complications related to COPD and thyroid. MEDICATIONS: Administered at this time were noted as use of vitamin D, sertraline, Daliresp, Solu-Medrol 30 mg q. 8 hours, Flonase, Xanax, Zithromax, fentanyl and p.r.n. use of Xanax. ALLERGIES: No known drug allergies. PHYSICAL EXAMINATION: GENERAL: This is a 57-year-old female who has been noted without any acute distress, at this time sitting on the bed. The height of the patient recorded by the nursing staff 5 feet 1 inch, weight of 46 kilogram, BMI 19.1. VITAL SIGNS: The patient shows a normal temperature since hospitalization yesterday, respiratory rate ranged between 18-22, heart rate 77-78, blood pressure 110/67-137/89. The pulse oxygen saturation of the patient recorded on 3 liters nasal cannula as 98% saturation on admission. HEENT: Head was atraumatic. Eye nonicterus. NECK: Supple. CARDIOVASCULAR: S1, S2 audible without any tachycardia or added sounds. LUNGS: Noted diffuse reduction in breath sounds with diffuse expiratory wheezing, remains unchanged from previous examination yesterday. ABDOMEN: Flat, soft, nontender. Bowel sounds present. CENTRAL NERVOUS SYSTEM: Cranial nerves 2-12 intact. No focal deficit. MUSCULOSKELETAL: No deformities. SKIN: Showed no lesions or rashes. LABORATORY DATA: The outpatient sputum culture of the patient was noted with normal judith, done on 11/14/2017 ordered by the primary care physician. Lactic acid yesterday normal. CBC yesterday, noted essentially normal CBC. The PT, PTT yesterday normal. CMP yesterday on admission, glucose 150, BUN and creatinine was normal. CO2 of 34. IMAGING STUDIES: One view chest x-ray of the patient shows hyperinflation without any acute infiltration, changes of COPD. IMPRESSION: 1. The patient with progressive increased respiratory symptoms, suspected mucous impaction ongoing exacerbation of chronic obstructive pulmonary disease, not resolved with outpatient treatment. [place], [place] REPORT OF CONSULTATION NAME: CASTILLO PEREZ UNIT #: [id number] ROOM: 407 DOCTOR: ROLAND BRIONES MD BIRTHDATE: [birth year] 2. History of chronic nicotine abuse as well and acute chronic hypercapnic-hypoxic respiratory failure as well. 3. History of generalized anxiety disorder and other problems listed in the past history. PLAN OF MANAGEMENT: The patient would be recommended about the therapeutic bronchoscopy that will be done today. She was already made n.p.o. past midnight for the procedure. The consent was discussed with the patient yesterday as well about that. In the meantime, continue current dose of corticosteroids, bronchodilators, oxygen supplementation, other treatment as in progress. Usual care, other supportive plan of therapy. Additional treatment changes will be made on the patient based on the additional data once available. Supportive therapy, plan of care and treatment. Usual medical management. Thanks for allowing me to participate in the care of this patient. ROLAND VALLEJO MD CM:CONSTR:REPORT OF CONSULTATION 1644 11/20/17 0323 interface
--- NOTE | ~2017-11-18 | PR ---
[place], [place] PROGRESS NOTE [id number] UN[facility] #: [id number] ROOM: 407 DOCTOR: IOANA GRAYSON DO BIRTHDATE: [birth year] DOS: 11/20/2017 SUBJECTIVE: The patient was seen and assessed at bedside this morning. The patient was sitting upright and feeling much better after the bronchoscopy was performed yesterday. The patient continues to improve. The patient feels like she may be ready to go home either tomorrow or the next day depending on how she continues to improve with current treatment. The patient has no complaints of chest pain. The patient continues to have mild shortness of breath. OBJECTIVE: VITAL SIGNS: Temperature is 97.9, pulse is 74, respirations 17, blood pressure 138/84, pulse ox is 97% on 3 liters nasal cannula. LABS: The acid fast stains are still pending at this time. Bronch cultures showed few Gram-positive cocci in pairs on the Gram stain and no fungi are noted on the SUDHA prep. Blood cultures preliminary are yet to be filed that were drawn on the 11/18. HEENT: Eyes are clear with no injection. Mucous membranes are moist. Nares are patent. No nasal drip is noted. RESPIRATORY: Wheezing and diminished breath sounds are noted throughout, improved since the time of admission. CARDIAC: No murmurs, gallops or rubs. S1 and S2 noted. Regular rate and rhythm. EXTREMITIES: Peripheral extremities, no cyanosis, clubbing, erythema or edema. ASSESSMENT: 1. Chronic obstructive pulmonary disease exacerbation with mucus plugging status post bronchoscopy on 11/19/2017. 2. Chronic tobacco abuse. 3. Chronic hypercapnia and hypoxia respiratory failure. 7. Generalized anxiety disorder. PLAN: Continue with current antibiotics, steroids, Mucinex, breathing treatments, Robitussin. Continue with Solu-Medrol, , azithromycin and DuoNeb q. 4 p.r.n. Reassess the patient in the morning. If the patient continues to improve, anticipate discharge either tomorrow or the next day. IOANA GRAYSON DO [place], [place] PROGRESS NOTE NAME: CASTILLO PEREZ UNIT #: [id number] ROOM: 407 DOCTOR: IOANA GRAYSON DO BIRTHDATE: [birth year] ROLAND VALLEJO MD CM:KODI [id number] IOANA GRAYSON DO 11/20/17 1100 interface
--- NOTE | ~2017-11-18 | WRIGHTHP ---
[place], [place] PATIENT HISTORY AND PHYSICAL EXAM NAME: CASTILLO PEREZ UNIT #: [id number] ROOM: 407 DOCTOR: LINDA MISHRA MD BIRTHDATE: [birth year] DOS: 11/18/2017 HISTORY OF PRESENT ILLNESS: The patient is 57 years old, was treated and released from the hospital recently with acute exacerbation of COPD, continued to get worse, so she decided to come into the Emergency Room, was evaluated and was admitted for possible bronchoscopy. Dr. Mcadams had recommended she be admitted for that. She denies having any chest pains, palpitations. Unfortunately, the patient continues to smoke. This morning, she requested some Boost since she does not have much of an appetite. PAST MEDICAL HISTORY: Significant for: 1. Last hospitalization in 10/2017 with acute exacerbation. 2. Moderate cigarette smoker. 3. Chronic respiratory failure. 4. Generalized anxiety disorder. 5. Hypertension. 6. Chronic opioid dependence. 7. History of hepatitis C. MEDICATIONS: She is on are Ventolin, DuoNeb, Combivent, Xanax, Daliresp, sertraline and Fentanyl. SOCIAL HISTORY: Half to 1 pack of cigarettes a day. PHYSICAL EXAMINATION: VITAL SIGNS: Blood pressure is 138/84, pulse of 74, respirations 17, temperature 97.9. LUNGS: Diminished breath sounds, few scattered wheezes heard bilaterally. HEART: Regular. ABDOMEN: Soft, scaphoid. EXTREMITIES: Without any edema. ASSESSMENT AND PLAN: 1. Acute exacerbation of chronic obstructive pulmonary disease. The patient has been admitted. IV steroids were added. 2. Acute tracheobronchitis, on antibiotics IV. Awaiting the bronch culture to decide on changes in medications. 3. Chronic pain syndrome. Continue home medications. [place], [place] PATIENT HISTORY AND PHYSICAL EXAM NAME: CASTILLO PEREZ UNIT #: [id number] ROOM: 407 DOCTOR: LINDA MISHRA MD BIRTHDATE: [birth year] LINDA MISHRA MD CM:HISPHYS:PATIENT HISTORY AND PHYSICAL EXAMINATION LINDA MISHRA MD 11/20/17 0933 interface
[2017-11-18 16:44] VITALS: BP 137/89
[2017-11-18 17:27] LABS: BASO % 0.3 % (0.0-1.0); EOS # 0.2 10*3/uL (0.0-0.4); EOS % 2.6 % (1.0-4.0); HEMATOCRIT 39.8 % (37.0-47.0); HEMOGLOBIN 13.2 g/dl (12.0-16.0); LYMPH # 1.3 10*3/uL (1.3-4.4); LYMPH % 20.6 % (27.0-41.0); MEAN CELL VOLUME 95.2 fl (81.0-99.0); MEAN CORPUSCULAR HGB 31.6 pg (27.0-31.0); MEAN CORPUSCULAR HGB CONC 33.2 g/dl (33.0-37.0); MEAN PLATELET VOLUME 10.2 fl (9.6-12.3); MONO # 0.5 10*3/uL (0.1-1.0); MONO % 7.5 % (3.0-9.0); NEUT # 4.2 10*3/uL (2.3-7.9); NEUT % 68.7 % (47.0-73.0); PLATELET COUNT AUTOMATED 171 10*3/uL (130-400); RED BLOOD COUNT 4.18 10*6/uL (4.10-5.10); RED CELL DISTRI WIDTH 13.4 % (0-14.5); WHITE BLOOD COUNT 6.1 10*3/uL (4.8-10.8)
[2017-11-18 17:37] LABS: ACT PARTIAL THROMBO TIME 25.3 SECONDS (20.8-31.5)
[2017-11-18 17:45] LABS: ALBUMIN 3.3 gm/dl (3.1-4.5); ALKALINE PHOSPHATASE 114 U/L (45-117); BUN 18 mg/dl (7-24); CHLORIDE 97 mmol/L (98-107); CREATININE 1.01 mg/dL (0.55-1.02); PHOSPHOROUS 3.5 mg/dL (2.5-4.9); POTASSIUM 3.6 mmol/L (3.5-5.1); SGOT/AST 38 IU/L (3-35); SGPT/ALT 43 U/L (12-78); SODIUM 139 mmol/L (136-145); TOTAL PROTEIN 7.5 gm/dL (6.4-8.2)
[2017-11-18 17:46] LABS: TROPONIN I < 0.015 ng/ml (<0.045)
[2017-11-18 19:15] VITALS: BP 128/84
[2017-11-18 19:55] VITALS: BP 132/87
[2017-11-18 20:00] VITALS: BP 132/87
[2017-11-19] VITALS (8 sets, daily range): BP systolic 96–155; BP diastolic 61–96
[2017-11-20] VITALS: BP 133/84
[2017-11-20 08:00] VITALS: BP 138/84
[2017-11-20 12:00] VITALS: BP 122/67
[2017-11-20 13:09] LABS: ACID FAST SMEAR Negative (.); ACID FAST SPEC PROCESSING Concentration (.)
[2017-11-20 16:00] VITALS: BP 139/87
[2017-11-20 20:01] VITALS: BP 143/76
[2017-11-21] VITALS: BP 124/78
[2017-11-21 08:00] VITALS: BP 138/74
[2017-11-21] MEDS ORDERED: CIPRO500 MG PO (08:54)
[2017-11-21] MEDS ORDERED: PREDNISONE5 MG PO (08:54)
== END 2017-11-21 11:00 | disposition home or self-care (01) | DRG 191 ==
LOC: ED 16:39 → 4E 18:29 → EDHOLD 18:29 → 4E 18:48
PROVIDERS: Internal Medicine Critical Care Medicine; Nurse Practitioner Family
PROC: 0BC98ZZ Extirpation of Matter from Lingula Bronchus, Via Natural or Artificial Opening Endoscopic (ICD-10-PCS; principal; 2017-11-19)
PROC: 0BC48ZZ Extirpation of Matter from Right Upper Lobe Bronchus, Via Natural or Artificial Opening Endoscopic (ICD-10-PCS; 2017-11-19)
PROC: 0BC88ZZ Extirpation of Matter from Left Upper Lobe Bronchus, Via Natural or Artificial Opening Endoscopic (ICD-10-PCS; 2017-11-19)
PROC: 0BC58ZZ Extirpation of Matter from Right Middle Lobe Bronchus, Via Natural or Artificial Opening Endoscopic (ICD-10-PCS; 2017-11-19)
PROC: 0BC38ZZ Extirpation of Matter from Right Main Bronchus, Via Natural or Artificial Opening Endoscopic (ICD-10-PCS; 2017-11-19)
PROC: 0BC78ZZ Extirpation of Matter from Left Main Bronchus, Via Natural or Artificial Opening Endoscopic (ICD-10-PCS; 2017-11-19)
PROC: 0BC68ZZ Extirpation of Matter from Right Lower Lobe Bronchus, Via Natural or Artificial Opening Endoscopic (ICD-10-PCS; 2017-11-19)
PROC: 0BCB8ZZ Extirpation of Matter from Left Lower Lobe Bronchus, Via Natural or Artificial Opening Endoscopic (ICD-10-PCS; 2017-11-19)
PROC: 0BC18ZZ Extirpation of Matter from Trachea, Via Natural or Artificial Opening Endoscopic (ICD-10-PCS; 2017-11-19)
DX: J44.1 Chronic obstructive pulmonary disease with (acute) exacerbation (principal); T17.890A Other foreign object in other parts of respiratory tract causing asphyxiation, initial encounter; J96.11 Chronic respiratory failure with hypoxia; E87.8 Other disorders of electrolyte and fluid balance, not elsewhere classified; F11.20 Opioid dependence, uncomplicated; J96.12 Chronic respiratory failure with hypercapnia; J44.0 Chronic obstructive pulmonary disease with (acute) lower respiratory infection; R73.9 Hyperglycemia, unspecified; F41.1 Generalized anxiety disorder; F17.210 Nicotine dependence, cigarettes, uncomplicated; I10 Essential (primary) hypertension; G89.4 Chronic pain syndrome; J20.9 Acute bronchitis, unspecified; X58.XXXA Exposure to other specified factors, initial encounter; Z83.6 Family history of other diseases of the respiratory system; Z82.49 Family history of ischemic heart disease and other diseases of the circulatory system; Y93.89 Activity, other specified; Z80.9 Family history of malignant neoplasm, unspecified; Y92.89 Other specified places as the place of occurrence of the external cause; Y99.8 Other external cause status

== ENCOUNTER 2018-02-06 12:42 | Inpatient (IN) | payer OTHER ==
[~2018-02-06] VITALS: Ht 154.9 cm; Wt 42.6 kg
[2018-02-06] VITALS (7 sets, daily range): BP systolic 153–178; BP diastolic 88–107
--- NOTE | ~2018-02-06 | PR ---
[place], [place] PROGRESS NOTE NAME: CASTILLO PEREZ UNIT #: [id number] ROOM: 408 DOCTOR: GENEVIEVE PECK MD,ROLAND BIRTHDATE: [birth year] DOS: 02/11/2018 SUBJECTIVE: She has been noted comfortable at this time, resting in the bed without any acute distress, shortness of breath, cough, other symptoms have been gradually subsiding. OBJECTIVE: VITAL SIGNS: Normal temperature, respiratory rate 18, heart rate 73, blood pressure 159/79. The pulse oxygen saturation of the patient recorded as 97% on 3 liters nasal cannula. HEENT: Showed no new change. NECK: Supple. CARDIOVASCULAR: S1, S2 is audible. LUNGS: Noted with moderate decreased breath sounds without wheezing or crackles. ABDOMEN: Soft, nontender. EXTREMITIES: Without any acute edema. IMPRESSION: Resolving acute exacerbation of chronic obstructive pulmonary disease, progressive current medical management. PLAN OF MANAGEMENT: The patient could be considered for home discharge whenever necessary tapering dose of prednisone and oral antibiotics. Other supportive therapy, plan of management and care. ROLAND VALLEJO MD CM:PNTRANS 09 [phone] ROLAND PECK MD 02/11/181938 interface
--- NOTE | ~2018-02-06 | PR ---
[place], [place] PROGRESS NOTE NAME: CASTILLO PEREZ UNIT #: [id number] [place]OM: [facility] [place] DOCTOR: KELIN HOGAN MD BIRTHDATE: [birth year] DOS: 02/07/2018 SUBJECTIVE: The patient is feeling somewhat better except for that she has been very anxious. OBJECTIVE: VITAL SIGNS: Blood pressure 138/76, heart rate 92 beats per minute, breathing 24 times per minute, temperature 100.1 degrees Fahrenheit. GENERAL APPEARANCE: The patient is alert and oriented x 3, in no visible distress. Generalized weakness. HEENT AND NECK: Exam within normal limits. CARDIOVASCULAR SYSTEM: Heart rate is regular in rate and rhythm. S1 and S2 normally audible. LUNGS: Clear to auscultation.\E\ ABDOMEN: Soft, nontender. No obvious organomegaly. Bowel sounds are present. EXTREMITIES: Without significant cyanosis or edema. IMPRESSION: The patient with acute exacerbation of severe underlying chronic obstructive pulmonary disease and nicotine smoke dependence. The patient also with acute over chronic respiratory failure, improving with treatment. The patient with opioid seeking behavior and continuous complaints of pain and headaches and then lower back pain. The patient was maxed out on her opioids and actually her opioids needs to be gradually reduced with time. The patient also has been found to be positive for cocaine in her drug screens. The patient being encouraged to slowly be tapered down on opioids and taken off. Severe generalized anxiety disorder is being treated with Zoloft. The patient has been seen by psychiatry. KELIN HOGAN MD CM:PNTRANS [id number] KELIN HOGAN MD 02/07/18 1509 interface
--- NOTE | ~2018-02-06 | PR ---
[place], [place] PROGRESS NOTE NAME: CASTILLO PEREZ UNIT #: [id number] ROOM: 408 DOCTOR: LINDA MISHRA MD BIRTHDATE: [birth year] DOS: 02/10/2018 SUBJECTIVE: The patient is doing fine without any complaints. OBJECTIVE: VITAL SIGNS: Pressure is 151/64, pulse of 64, respirations 18, temperature 97.7. LUNGS: Diminished breath sounds, clear except for a few fine wheezes. HEART: Regular. ABDOMEN: Soft. EXTREMITIES: Without any edema. ASSESSMENT AND PLAN: 1. Acute exacerbation of chronic obstructive pulmonary disease, improving. Dr. Mcadams has discontinued the steroids and placed her on p.o. prednisone. 2. Acute tracheobronchitis with acute hypoxic respiratory failure. Advised the patient is to avoid too many pain medications. The plan is to discharge her to home tomorrow when Dr. Bean comes back. LINDA MISHRA MD CM:PNTRANS [id number] LINDA MISHRA MD 02/10/18 1759 interface
--- NOTE | ~2018-02-06 | CON ---
[place], [place] REPORT OF CONSULTATION NAME: CASTILLO PEREZ UNIT #: [id number] ROOM: [facility] DOCTOR: STEPHANIA MAYORGA MD BIRTHDATE: [birth year] DOS: 02/07/2018 PSYCHIATRIC CONSULTATION CHIEF COMPLAINT: "I just have so much anxiety, I can't stand it." HISTORY OF PRESENT ILLNESS: This is a 57-year-old white female with end-stage COPD with chronic respiratory failure and oxygen dependence, adult failure to thrive, chronic nicotine dependence, severe generalized anxiety disorder, chronic opioid dependence, hep C, benign hypertension, chronic pain and major depression. The patient is admitted to ICU due to significant shortness of breath and difficulty breathing. In addition, she reports underlying depression with persistent anxiety that is constant throughout the day. The patient has a lengthy history of benzodiazepine abuse and has been on Xanax chronically. Dr. Bean is in the process of gradually tapering the Xanax with the plan to discontinue. She reports also poor sleep and appetite, anergia, anhedonia, hopeless, helpless feelings, crying spells and inability to cope, but with the next breath denies depression. MENTAL STATUS: She is alert and oriented. Mood does seem to be somewhat depressed with significant anxious overtones. There is no lolita, hypomania or psychosis. Memory is intact. DIAGNOSES: Major depression, recurrent, severe and panic disorder. PLAN: I agree with the taper of the Xanax. The patient does seem to have multiple addictions. I did talk to her about starting low dose Zyprexa and I will utilize Zyprexa 2.5 mg twice daily. This will decrease anxiety. This will also augment the effectiveness of the antidepressant. It should also improve her appetite given her rather frail body habitus. I did not discuss with her the possibility of going to the [facility]. She certainly would be a candidate; however, I do not think she will go for this as she is at some level pushing for discharge and is actively med seeking. STEPHANIA MAYORGA MD CM:CONSTR:REPORT OF CONSULTATION 0 02/07/18926 interface
--- NOTE | ~2018-02-06 | PR ---
[place], [place] PROGRESS NOTE NAME: CASTILLO PEREZ UNIT #: [id number] ROOM: 408 DOCTOR: GENEVIEVE PECK MD,ROLAND BIRTHDATE: [birth year] DOS: 02/08/2018 SUBJECTIVE: She has been currently resting on the bed this morning of assessment. She does have reduction in symptoms of shortness of breath. Denies symptoms of chest pain. Coughing has been noted with some sputum expectoration. Temperature curve was noted as normal. She has not been noted any abdominal pain. OBJECTIVE: VITAL SIGNS: For the patient which has been recorded showed normal temperature, respiratory 16, heart rate 78, blood pressure 182/100-150/80. The temperature of the patient, pulse oxygen saturation 98% saturation. HEENT: No acute change. NECK: Supple. CARDIOVASCULAR: S1, S2 audible. LUNGS: General reduction in the breath sounds noted in the lungs bilaterally. ABDOMEN: Soft, flat, nontender. EXTREMITIES: Without any acute edema. LABORATORY DATA: Blood culture, no bacterial growth noted from the 02/06/2018. IMPRESSION: 1. Acute exacerbation of chronic obstructive pulmonary disease. 2. History of chronic hypoxic respiratory failure as well. 3. Uncontrolled systolic hypertension, which has been managed with the patient with change in medications by the primary care physician. PLAN OF MANAGEMENT: No changes in the plan of therapy of the patient at this time. Continuation of current plan of management and care. Other supportive plan of therapy and treatments. ROLAND VALLEJO MD CM:PNTRANS [phone] ROLAND PECK MD 02/09/18 013 interface
--- NOTE | ~2018-02-06 | PR ---
[place], [place] PROGRESS NOTE NAME: CASTILLO PEREZ UNIT #: [id number] ROOM: 408 DOCTOR: GENEVIEVE PECK MD,ROLAND BIRTHDATE: [birth year] DOS: 02/10/2018 SUBJECTIVE: The patient has been showing continued reduction and improvement in respiratory symptoms of shortness of breath, coughing, and others. Denies symptoms of chest pain or abdominal pain. OBJECTIVE: VITAL SIGNS: Normal temperature, respiratory rate 18, heart rate 79, blood pressure 168/93. The pulse oxygen saturation on 3 liters nasal cannula is 97% saturation. HEENT: No acute change. NECK: Supple. CARDIOVASCULAR: S1, S2 audible. LUNGS: Without any wheezing or crackles. Breaths sounds are noted mild to moderately decreased bilaterally. ABDOMEN: Soft, nontender. EXTREMITIES: Without any acute edema. IMPRESSION: Stable respiratory status with progressive resolution of acute exacerbation of chronic obstructive pulmonary disease and bronchitis. PLAN OF TREATMENT: Continuation of current plan for the patient as previously without any changes. Continue the usual plan of therapy and care plan. Usual medical management. ROLAND VALLEJO MD CM:PNTRANS [phone] ROLAND PECK MD 02/11/18 0236 interface
--- NOTE | ~2018-02-06 | PR ---
[place], [place] PROGRESS NOTE NAME: CASTILLO PEREZ UNIT #: [id number] ROOM: 408 DOCTOR: LINDA MISHRA MD BIRTHDATE: [birth year] DOS: SUBJECTIVE: The patient is about the same, does not have any new complaints. OBJECTIVE: VITAL SIGNS: Graphic trend shows blood pressure 139/80, pulse of 67, respirations 20, temperature 98.5. LUNGS: Diminished breath sounds, scattered wheezes. HEART: Regular. ABDOMEN: Soft, scaphoid. EXTREMITIES: Without any edema. ASSESSMENT AND PLAN: 1. Acute exacerbation of chronic obstructive pulmonary disease with very slow improvement. 2. Acute hypoxic respiratory failure. The patient has been on multiple pain medications as well as street drugs and may have caused the continued respiratory failure. Advised avoiding fentanyl patch if she can, she takes apparently for chronic pain syndrome. 3. Uncontrolled hypertension, pressure is much better after addition of medications yesterday. LINDA MISHRA MD CM:PNTRANS [id number] LINDA MISHRA MD 02/09/18 1030 interface
--- NOTE | ~2018-02-06 | PR ---
[place], [place] PROGRESS NOTE NAME: CASTILLO PEREZ UNIT #: [id number] ROOM: 408 DOCTOR: GENEIVEVE PECK MD,ROLAND BIRTHDATE: [birth year] DOS: 02/09/2018 SUBJECTIVE: She has been noted comfortable, continued to show reduction in respiratory symptoms of shortness breath and cough. There were symptoms of chest pain. Denies symptoms of abdominal pain. Remains on the telemetry floor. OBJECTIVE: VITAL SIGNS: Showed normal temperature, respiratory rate 20, heart rate of 80, blood pressure 146/82. The pulse oxygen saturation on 4 liters at 98% saturation. HEENT: No acute change. NECK: Supple. CARDIOVASCULAR: S1, S2 is audible. LUNGS: Noted with moderate decreased breath sounds in the lungs bilaterally. ABDOMEN: Soft, nontender. Bowel sounds present. EXTREMITIES: Without any acute edema. IMPRESSION: Progressive and gradual resolution of the acute exacerbation of chronic obstructive pulmonary disease at the present time with current medical management. PLAN OF TREATMENT: Continuation of the bronchodilators and oxygen supplementation. Discontinue Solu-Medrol. Switching the patient to oral prednisone 40 mg daily. Possible discharge in the morning could be considered. ROLAND VALLEJO MD CM:PNTRANS [id number] ROLAND PECK MD 02/09/18 1617 interface
--- NOTE | ~2018-02-06 | WRIGHTHP ---
[place], [place] PATIENT HISTORY AND PHYSICAL EXAM [facility]: [id number] UNIT #: [id number] ROOM: [facility] DOCTOR: KELIN HOGAN MD BIRTHDATE: [birth year] DOS: 02/06/2018 HISTORY OF PRESENT ILLNESS: The patient is a 57-year-old female with a past medical history of: 1. 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 2. Adult failure to thrive. 3. Chronic nicotine smoke dependence. 4. Severe generalized anxiety disorder. 5. Chronic opioid dependence. 6. History of hepatitis C. 7. Benign essential hypertension. 8. Chronic pain syndrome and chronic back pains. 9. Major depression, recurrent, mild to moderate. The patient presented to the Emergency Department at [facility] with increasing shortness of breath, not eating for about 5 days now. The patient was also complaining of severe anxiety. The patient was diagnosed as having acute over chronic respiratory failure and acute exacerbation of severe underlying chronic obstructive pulmonary disease and recommended for admission and further management. The patient is being admitted to the ICU. The patient is being started on Solu-Medrol, oxygen, bronchodilators, antibiotics and consult has been obtained with interstate bus driver, Dr. Mcadams to help with management. Severe generalized anxiety disorder, for which the patient has been on Xanax already and I will keep her on hydroxyzine to control her anxiety. Chronic back pains, for which she is dependent on opioids. The patient is to be continued on fentanyl patch and followed closely. The patient keeps requesting more pain medications, which also causes respiratory suppression and likely to make her respiratory failure even worse. This has been discussed with the patient in great detail, but patient still continues to ask for more pain medications and opioids. Major depression, recurrent, treated with Zoloft. Benign essential hypertension. Blood pressure will be monitored and treated and controlled. Continued nicotine smoke dependence. The patient is being recommended to stop smoking cigarettes. HOME MEDICATIONS: Zoloft, hydroxyzine, DuoNeb, fentanyl patch. PHYSICAL EXAMINATION: GENERAL: Alert, oriented x 3, cachectic, severe generalized muscle wasting. HEENT AND NECK: Extraocular movements are intact. Sclerae are anicteric. Oral mucosa is moist and clean. No obvious facial weakness. Neck is supple without any lymphadenopathy. No thyromegaly. No JVD. No carotid arterial bruits. [place], [place] PATIENT HISTORY AND PHYSICAL EXAM NAME: CASTILLO PEREZ UNIT #: [id number] ROOM: [facility] DOCTOR: KELIN HOGAN MD BIRTHDATE: [birth year] LUNGS: Decreased breath sounds all over. CARDIOVASCULAR SYSTEM: Heart rate is regular in rate and rhythm. S1 and S2 normally audible. No significant murmur or any other abnormal cardiac sounds. ABDOMEN: Soft, nontender. No obvious organomegaly. Bowel sounds are present. No obvious herniation. EXTREMITIES: Without significant cyanosis or edema. Warm to touch. CENTRAL NERVOUS SYSTEM: Alert and oriented x 3. Cranial nerves II-XII are intact. Speech is normal. The patient is able to move all extremities. Normal muscle strength. Deep tendon reflexes are equal on both sides. Plantars were downgoing. LABORATORY DATA: Chest x-ray is showing no infiltrates, just COPD. Blood gases with pH of 7.45, pCO2 of 50, pO2 of 82 with 4 liters of oxygen by nasal cannula. IMPRESSION AND PLAN: 1. The patient with acute exacerbation of severe underlying chronic obstructive pulmonary disease with acute over chronic respiratory failure and home oxygen dependence. The patient admitted to ICU for close monitoring. The patient has advanced lung disease and suboptimal long-term prognosis. 2. Opioid seeking behavior and complains of chronic back pains, treated cautiously with opioids, which had been tapered down as an outpatient. 3. Benign essential hypertension, treated and controlled. 4. Major depression, recurrent, moderate, treated with Zoloft. 5. We will take bedsore precautions, fall precautions and also treat her with physical therapy. KELIN HOGAN MD CM:HISPHYS:PATIENT HISTORY AND PHYSICAL EXAMINATION 01 47 KELIN HOGAN MD 02/06/181847 interface
--- NOTE | ~2018-02-06 | CON ---
[place], [place] REPORT OF CONSULTATION NAME: CASTILLO PEREZ UNIT #: [id number] ROOM: 408 DOCTOR: ROALND BRIONES MD BIRTHDATE: [birth year] DOS: 02/07/2018 REASON FOR CONSULTATION: Assess the patient's acute respiratory failure. HISTORY OF PRESENT ILLNESS: A 57-year-old white female, who has been known to me from the past. The patient has been admitted to the hospital on 02/06/2018. The patient was assessed as she came into the Emergency Room by the ambulance. She was reporting having symptoms including shortness breath, which has been ongoing for the past 3 nights as per patient. She was using her oxygen supplementation and taking breathing treatments and others without any improvement in the respiratory symptom, currently shortness of breath of the patient has been noted with significant worsening. The symptoms were associated with mylf-[id number]-hmkgvgge cough without any sputum expectoration. The patient denied symptoms of chest pain or hemoptysis. Wheezing was reported with tightness in the chest. There was no chest pain. REVIEW OF SYSTEMS: CONSTITUTIONAL: Fatigue and tiredness noted without symptoms of fever or chills. EYES: Denies burning, redness, tenderness. EARS, NOSE THROAT: Denies sore throat, hoarseness, otalgia, postnasal drainage or epistaxis. CARDIOVASCULAR: Denies anginal pain, edema, or pain of lower extremities. GASTROINTESTINAL: Denies dysphagia, nausea, vomiting, diarrhea, abdominal pain, hematemesis, melena, or hematochezia. SKIN: No abnormal lesions or rashes. MUSCULOSKELETAL: There was no acute joint pain reported. PSYCHIATRIC: History of chronic generalized severe anxiety disorder. She was complaining of increased anxiety at this time. CENTRAL NERVOUS SYSTEM: No dizziness, headache, diplopia, syncopal episodes or tingling sensation of the extremities. The remaining systems were reviewed, they were noted all negative. PAST MEDICAL HISTORY: 1. Advanced centrilobular emphysema, COPD. 2. Chronic hypercapnic respiratory failure and acute chronic hypoxic respiratory failure, use of oxygen between 2-4 liter nasal cannula. 3. Uncomplicated severe persistent bronchial asthma. 4. History of nicotine dependence. 5. History of narcotics medication dependency as well. 6. Intervertebral disk disease. 7. Generalized severe anxiety disorder. PAST SURGICAL HISTORY: 1. Appendectomy. 2. Laparoscopic cholecystectomy and appendectomy. The patient with mechanical ventilation that is therapeutic. 3. Therapeutic bronchoscopy, last bronchoscopy done in 11/2017. [place], [place] REPORT OF CONSULTATION NAME: CASTILLO PEREZ UNIT #: [id number] ROOM: [facility] DOCTOR: ROLAND BRIONES MD BIRTHDATE: [birth year] SOCIAL HISTORY: The patient is , has 4 children, lives at home. Smoking noted from age of [age] years old one and half pack of cigarettes, intermittent tobacco use, stating she denies smoking cigarettes at this time. Denies history of alcohol use or illicit drug use. Denies any inhalation to any dust or chemicals in occupation related exposure. FAMILY HISTORY: The patient's father at 42 years with complication of brain aneurysm. Mother at age of 5050 years old, complication of COPD and thyroid problems. MEDICATIONS: Current medication administered were noted use of olanzapine, sertraline, hydroxyzine, Solu-Medrol 20 mg q.8 hours, promethazine, IV Rocephin, Zithromax, fentanyl patches and other p.r.n. medications administration. DRUG ALLERGIES: Noted with no known drug allergies. PHYSICAL EXAMINATION: GENERAL: This is a 57-year-old female, who has been currently noted to be awake and alert, somewhat excited, but otherwise normal. She was in no acute distress. The patient was using oxygen supplementation via nasal cannula. VITAL SIGNS: The height for the patient recorded on admission by the nursing staff as 5 feet 1 inch, weight of 94 pounds, BMI 17.7. The temperature of 100 degrees Fahrenheit to normal temperature, respiratory rate 18-20, heart rate of 101-84. Blood pressure noted as elevated at 184/105 as the highest, currently noted 138/76. The pulse oxygen saturation of the patient noted on 3 liters was 96% saturation. HEENT: Head was atraumatic. Eyes nonicterus. NECK: Supple. CARDIOVASCULAR SYSTEM: S1, S2 audible. LUNGS: Moderate decreased breath sounds with expiratory wheezing. There were no crackles. ABDOMEN: Flat, soft, nontender. Bowel sounds present. EXTREMITIES: Noted without any acute edema. MUSCULOSKELETAL: Without any acute deformities. CENTRAL NERVOUS SYSTEM: Cranial nerves 2-12 intact. No focal deficit. MUSCULOSKELETAL: Without an acute deformity. SKIN: Without any lesions, rashes or ulcers evidently on the visible areas. LABORATORY DATA: CBC yesterday noted normal. CBC of this morning was noted as WBC count 14.4, otherwise normal CBC. Arterial blood gas yesterday on 4 liters, pH of 7.45, pCO2 of 48, pO2 of 82.4. CMP of the patient, BUN normal, creatinine normal, glucose 128, CO2 of 35. Urine drug screen yesterday was noted positive for benzodiazepines and opioids. BMP of this morning, BUN 26, creatinine normal, glucose 124. Chest x-ray, 2-view, which was done for the patient on 02/06/2018 for the patient yesterday were noted. Changes of COPD and emphysema without any acute infiltration or other abnormalities. IMPRESSION: 1. The patient will be currently admitted to the hospital noted with chronic hypoxic respiratory failure. The patient with hypercapnia. [place], [place] REPORT OF CONSULTATION NAME: CASTILLO PEREZ UNIT #: [id number] ROOM: [facility] DOCTOR: ROLAND BRIONES MD BIRTHDATE: [birth year] 2. Acute exacerbation of chronic obstructive pulmonary disease, acute bronchitis. 3. Intermittent past history of nicotine use as well. 4. Low BMI of the patient less than 18. 5. General anxiety disorder and acute chronic pain medication dependency. PLAN OF MANAGEMENT: Bronchodilators to be given to the patient for every 4 hours while awake. Continue the current dose of Solu-Medrol and the antibiotics. Collect the sputum for Gram stain and culture when the patient is expectorating sputum. Monitor otherwise respiratory status of the patient as well. In addition, treatment changes to be made based on the progression of the illness. The patient has been seen by Dr. Ferguson for the medical and severe general anxiety disorder. Previous dependency benzodiazepine, recommend a different. Change in the medication with the discontinuation of the benzodiazepine gradually, starting the patient on Zyprexa. Follow his recommendations and the patient's psychiatric illness management. ROLAND VALLEJO MD CM:CONSTR:REPORT OF CONSULTATION 1019 02/08/18 0113 interface
--- NOTE | ~2018-02-06 | PR ---
[place], [place] PROGRESS NOTE NAME: CASTILLO PEREZ UNIT #: [id number] ROOM: 408 DOCTOR: LINDA MISHRA MD BIRTHDATE: [birth year] DOS: 02/08/2018 SUBJECTIVE: The patient appears sleepy, but does not have any other complaints. OBJECTIVE: VITAL SIGNS: Graphic trend shows a pressure 168/86, pulse of 70, respirations 16, temperature 98.1. LUNGS: Diminished breath sounds. HEART: Regular. ABDOMEN: Soft, scaphoid. EXTREMITIES: Without any edema. ASSESSMENT AND PLAN: 1. Acute respiratory failure, hypoxic, on oxygen supplementation. 2. Acute exacerbation of chronic obstructive pulmonary disease, on IV steroids. 3. Adult failure to thrive with protein-calorie malnutrition, on chronic pain medications as well as dependency issues. We will discontinue Easley catheter for right now. 4. Generalized anxiety disorder, followed by Dr. Ferguson. LINDA MISHRA MD CM:PNTRANS [id number] LINDA MISHRA MD 02/08/18 1213 interface
--- NOTE | ~2018-02-06 | DS ---
[place], [place] DISCHARGE SUMMARY [id number] UNIT #: [id number] ROOM: 408 DOCTOR: KELIN HOGAN MD BIRTHDATE: [birth year] DOS: 02/11/2018 DISCHARGE DIAGNOSES: 1. Acute exacerbation of chronic obstructive pulmonary disease with severe underlying disease. 2. Acute over chronic respiratory failure. 3. Adult failure to thrive. 4. Chronic nicotine smoke dependence. 5. Severe generalized anxiety disorder. 6. Chronic opioid dependence. 7. History of hepatitis C. 8. History of benign essential hypertension. 9. Chronic pain syndrome and chronic back pains. 10. Major depression, recurrent, mild to moderate. The patient presented to the hospital with increased shortness of breath for about 5 days. The patient was severely anxious and could barely breathe. The patient was diagnosed as having acute exacerbation of severe underlying COPD and acute respiratory failure. The patient was treated with corticosteroids, oxygen, bronchodilators and she improved slowly. The patient remained very anxious and finally she appears to have achieved maximum benefit from this admission. The patient was also followed by cathead worker, Dr. Mcadams and she will be discharged to home on antibiotics and tapering down dose of corticosteroids. Chronic back pains and chronic opioid dependence. I am slowly tapering down her fentanyl patch and will continue to do that. Slow tapering is to avoid any opioid withdrawal. Benign essential hypertension, treated and controlled. Major depression, recurrent, moderate, treated with Zoloft and controlled. The patient's Zoloft also helps her with her anxiety. LABORATORY DATA: Blood cultures were negative. Leukocytosis from use of corticosteroids, white cell count of 14,400, normal platelets. Urine drug screen positive for benzodiazepines and opiates. Chest x-ray showed COPD. DISCHARGE MANAGEMENT: Clonidine 0.2 mg b.i.d., nicotine inhaler p.r.n., nicotine patch 21 mg daily, Medrol Dosepak, Zyprexa 2.5 mg b.i.d., Zoloft 200 mg daily, hydroxyzine 25 mg every 8 hours as needed for anxiety, DuoNeb every 4 hours, Xanax p.r.n., fentanyl patch 62.5 mg every 3 days. Follow up at the office this week. [place], [place] DISCHARGE SUMMARY NAME: CASTILLO PEREZ UNIT #: [id number] ROOM: 408 DOCTOR: SAMIRA PULIDO,KELIN Short BIRTHDATE: [birth year] KELIN HOGAN MD CM:REAGAN [id number] KELIN HOGAN MD 02/11/18 182 interface
[~2018-02-06 12:42] MED LIST changes: +CIPRO500 MG PO; +PREDNISONE5 MG PO
[2018-02-06 13:28] LABS: BASO % 0.2 % (0.0-1.0); EOS % 0.3 % (1.0-4.0); HEMATOCRIT 46.1 % (37.0-47.0); LYMPH # 0.6 10*3/uL (1.3-4.4); MEAN CELL VOLUME 96.2 fl (81.0-99.0); MEAN CORPUSCULAR HGB 31.3 pg (27.0-31.0); MEAN CORPUSCULAR HGB CONC 32.5 g/dl (33.0-37.0); MONO # 0.5 10*3/uL (0.1-1.0); MONO % 4.8 % (3.0-9.0); NEUT # 9.1 10*3/uL (2.3-7.9); NEUT % 88.3 % (47.0-73.0); PLATELET COUNT AUTOMATED 220 10*3/uL (130-400); RED BLOOD COUNT 4.79 10*6/uL (4.10-5.10); RED CELL DISTRI WIDTH 13.2 % (0-14.5); WHITE BLOOD COUNT 10.3 10*3/uL (4.8-10.8)
[2018-02-06 13:46] LABS: ALBUMIN 3.8 gm/dl (3.1-4.5); ALKALINE PHOSPHATASE 116 U/L (45-117); BUN 18 mg/dl (7-24); CHLORIDE 93 mmol/L (98-107); CREATININE 0.88 mg/dL (0.55-1.02); POTASSIUM 3.9 mmol/L (3.5-5.1); SGOT/AST 32 IU/L (3-35); SGPT/ALT 32 U/L (12-78); SODIUM 137 mmol/L (136-145); TOTAL PROTEIN 8.3 gm/dL (6.4-8.2)
[2018-02-06 14:18] LABS: ABG BASE EXCESS 9.3 mmol/L (-2.0-2.0); ABG HCO3 34.5 mmol/l (22-26); ABG O2 SATURATION 96.8 % (95-97); ARTERIAL BLOOD GAS PCO2 49.8 mmHg (35-45); ARTERIAL BLOOD GAS PH 7.455 (7.35-7.45); ARTERIAL BLOOD GAS PO2 82.4 mmHg (80-90)
[2018-02-06] MEDS ORDERED: ATARAX,VISTARIL50 MG PO (17:14)
[2018-02-06] MEDS ORDERED: COMBIVENT RESPIM4 GM INH (17:15)
[2018-02-06] MEDS ORDERED: BREO ELLIPTA 11 EACH INH (17:16)
[2018-02-06 17:21] LABS: URINE AMPHETAMINES < 1000 (1000ng/ml); URINE BARBITURATES < 200 (200ng/ml); URINE BENZODIAZEPINES > 200 (200ng/ml); URINE CANNABINOIDS (THC) < 50 (50ng/ml); URINE COCAINE < 300 (300ng/ml); URINE METHADONE < 300 (300ng/ml); URINE OPIATES > 300 (300ng/ml)
[2018-02-06 17:22] LABS: URINE PHENCYCLIDINE < 25 (25ng/ml)
[2018-02-07] VITALS (7 sets, daily range): BP systolic 138–184; BP diastolic 76–105
[2018-02-07 05:24] LABS: BUN 26 mg/dl (7-24); CHLORIDE 96 mmol/L (98-107); POTASSIUM 3.9 mmol/L (3.5-5.1); SODIUM 138 mmol/L (136-145)
[2018-02-07 05:55] LABS: BASO % 0.1 % (0.0-1.0); LYMPH # 0.8 10*3/uL (1.3-4.4); LYMPH % 5.3 % (27.0-41.0); MEAN CELL VOLUME 95.1 fl (81.0-99.0); MEAN CORPUSCULAR HGB 31.7 pg (27.0-31.0); MEAN CORPUSCULAR HGB CONC 33.3 g/dl (33.0-37.0); MEAN PLATELET VOLUME 10.5 fl (9.6-12.3); MONO # 1.1 10*3/uL (0.1-1.0); MONO % 7.3 % (3.0-9.0); NEUT # 12.5 10*3/uL (2.3-7.9); NEUT % 86.9 % (47.0-73.0); PLATELET COUNT AUTOMATED 223 10*3/uL (130-400); RED BLOOD COUNT 4.07 10*6/uL (4.10-5.10); RED CELL DISTRI WIDTH 13.2 % (0-14.5); WHITE BLOOD COUNT 14.4 10*3/uL (4.8-10.8)
[2018-02-07 06:01] LABS: HEMATOCRIT 38.7 % (37.0-47.0); HEMOGLOBIN 12.9 g/dl (12.0-16.0)
[2018-02-08] VITALS: BP 182/67
[2018-02-08 00:40] VITALS: BP 150/80
[2018-02-08 08:00] VITALS: BP 168/86
[2018-02-08 12:00] VITALS: BP 182/100
[2018-02-08 16:00] VITALS: BP 149/77
[2018-02-08 20:00] VITALS: BP 148/90
[2018-02-09] VITALS: BP 131/63; BP 139/80
[2018-02-09 08:00] VITALS: BP 154/80
[2018-02-09 12:00] VITALS: BP 146/72
[2018-02-09 16:03] VITALS: BP 173/88
[2018-02-09 20:15] VITALS: BP 164/86
[2018-02-10] VITALS: BP 171/85
[2018-02-10 03:55] VITALS: BP 151/64
[2018-02-10 08:00] VITALS: BP 168/93
[2018-02-10 12:00] VITALS: BP 169/90
[2018-02-10 16:00] VITALS: BP 127/77
[2018-02-10 20:00] VITALS: BP 155/73
[2018-02-11] VITALS: BP 140/73
[2018-02-11 08:00] VITALS: BP 159/79
[2018-02-11 12:00] VITALS: BP 148/62
[2018-02-11] MEDS ORDERED: FENTANYL1 EACH TD (15:45)
[2018-02-11] MEDS ORDERED: MEDROL DOSEPAK4 MG PO (15:45)
[2018-02-11] MEDS ORDERED: NICODERM T (15:45)
[2018-02-11] MEDS ORDERED: NICOTROL10 MG INH (15:45)
[2018-02-11] MEDS ORDERED: CLONIDINE HCL0.2 MG PO (15:55)
[2018-02-11 16:00] VITALS: BP 136/76
== END 2018-02-11 16:30 | disposition home or self-care (01) | DRG 190 ==
LOC: ED 12:42 → ICCU 15:51 → EDHOLD 15:51 → 4E 16:40 → ICCU 17:47 → 4E 02-07 17:49
PROVIDERS: Emergency Medicine; Internal Medicine
DX: J44.1 Chronic obstructive pulmonary disease with (acute) exacerbation (principal); J96.21 Acute and chronic respiratory failure with hypoxia; E46 Unspecified protein-calorie malnutrition; F33.2 Major depressive disorder, recurrent severe without psychotic features; G95.89 Other specified diseases of spinal cord; J96.22 Acute and chronic respiratory failure with hypercapnia; F11.20 Opioid dependence, uncomplicated; Z68.1 Body mass index [BMI] 19.9 or less, adult; Z99.81 Dependence on supplemental oxygen; J44.0 Chronic obstructive pulmonary disease with (acute) lower respiratory infection; R62.7 Adult failure to thrive; F17.210 Nicotine dependence, cigarettes, uncomplicated; F41.1 Generalized anxiety disorder; I10 Essential (primary) hypertension; G89.4 Chronic pain syndrome; M54.9 Dorsalgia, unspecified; J45.50 Severe persistent asthma, uncomplicated; J20.9 Acute bronchitis, unspecified; F41.0 Panic disorder [episodic paroxysmal anxiety]; Z79.899 Other long term (current) drug therapy; Z91.81 History of falling; Z87.01 Personal history of pneumonia (recurrent); Z87.440 Personal history of urinary (tract) infections; Z90.49 Acquired absence of other specified parts of digestive tract; Z82.5 Family history of asthma and other chronic lower respiratory diseases; Z80.8 Family history of malignant neoplasm of other organs or systems; Z82.49 Family history of ischemic heart disease and other diseases of the circulatory system; Z76.5 Malingerer [conscious simulation]; Z82.0 Family history of epilepsy and other diseases of the nervous system

== ENCOUNTER 2018-02-12 12:20 | Emergency (ER) | payer OTHER ==
[~2018-02-12] VITALS: Ht 154.9 cm; Wt 44.5 kg
[~2018-02-12 12:20] MED LIST changes: +ATARAX,VISTARIL50 MG PO; +BREO ELLIPTA 11 EACH INH; +CLONIDINE HCL0.2 MG PO; +FENTANYL1 EACH TD; +NICODERM T; +NICOTROL10 MG INH
[2018-02-12 12:53] LABS: BASO # 0.1 10*3/uL (0.0-0.1); BASO % 0.5 % (0.0-1.0); EOS # 0.4 10*3/uL (0.0-0.4); EOS % 2.1 % (1.0-4.0); HEMATOCRIT 43.1 % (37.0-47.0); HEMOGLOBIN 13.7 g/dl (12.0-16.0); LYMPH # 2.9 10*3/uL (1.3-4.4); LYMPH % 17.5 % (27.0-41.0); MEAN CELL VOLUME 97.7 fl (81.0-99.0); MEAN CORPUSCULAR HGB 31.1 pg (27.0-31.0); MEAN CORPUSCULAR HGB CONC 31.8 g/dl (33.0-37.0); MEAN PLATELET VOLUME 9.3 fl (9.6-12.3); MONO # 0.9 10*3/uL (0.1-1.0); MONO % 5.6 % (3.0-9.0); NEUT # 11.9 10*3/uL (2.3-7.9); PLATELET COUNT AUTOMATED 307 10*3/uL (130-400); RED BLOOD COUNT 4.41 10*6/uL (4.10-5.10); RED CELL DISTRI WIDTH 13.1 % (0-14.5); WHITE BLOOD COUNT 16.4 10*3/uL (4.8-10.8)
[2018-02-12 13:09] LABS: ALBUMIN 3.5 gm/dl (3.1-4.5); ALKALINE PHOSPHATASE 149 U/L (45-117); BUN 28 mg/dl (7-24); CHLORIDE 99 mmol/L (98-107); CREATININE 0.98 mg/dL (0.55-1.02); POTASSIUM 4.2 mmol/L (3.5-5.1); SGOT/AST 43 IU/L (3-35); SGPT/ALT 60 U/L (12-78); SODIUM 139 mmol/L (136-145); TOTAL PROTEIN 7.2 gm/dL (6.4-8.2)
[2018-02-12 13:11] LABS: ACETAMINOPHEN (TYLENOL) < 2.0 ug/ml (10-30); ETHYL ALCOHOL < 3.0 mg/dl (<3)
[2018-02-12 13:40] VITALS: BP 158/80
[2018-02-12 14:16] LABS: BILIRUBIN NEGATIVE (NEGATIVE); BLOOD TRACE-INTACT (NEGATIVE); CLARITY CLEAR (CLEAR); COLOR YELLOW (YELLOW); GLUCOSE NEGATIVE (NEGATIVE); KETONE NEGATIVE (NEGATIVE); LEUKO ESTERASE NEGATIVE (NEGATIVE); NITRITE NEGATIVE (NEGATIVE); PH 5.5 (5.0-9.0); SPECIFIC GRAVITY >= 1.030 (1.005-1.030); UROBILINOGEN 0.2 E.U./dl (0.2-1.0)
[2018-02-12 14:24] LABS: URINE AMPHETAMINES < 1000 (1000ng/ml); URINE BARBITURATES < 200 (200ng/ml); URINE BENZODIAZEPINES > 200 (200ng/ml); URINE CANNABINOIDS (THC) < 50 (50ng/ml); URINE COCAINE < 300 (300ng/ml); URINE METHADONE < 300 (300ng/ml); URINE OPIATES > 300 (300ng/ml); URINE PHENCYCLIDINE < 25 (25ng/ml)
[2018-02-12 14:25] LABS: BACTERIA 3+; CALCIUM OXALATE CRYSTALS 2+
== END 2018-02-12 15:10 | disposition home or self-care (01) ==
LOC: ED 12:20
PROVIDERS: Emergency Medicine
DX: T40.601A Poisoning by unspecified narcotics, accidental (unintentional), initial encounter (principal); J44.9 Chronic obstructive pulmonary disease, unspecified; I10 Essential (primary) hypertension; Z79.899 Other long term (current) drug therapy; Y92.89 Other specified places as the place of occurrence of the external cause